=== PATIENT | male | born 1995 | race African-American/Black ===

== ENCOUNTER 2019-11-19 14:30 | Outpatient (RCR) | payer OTHER, SELFPAY ==
--- NOTE | 2019-09-23 14:27 | PTOPEVAL ---
PHYSICAL THERAPY EVALUATION AND PLAN OF CARE 09-23-2019 The PT evaluation was completed and his plan of care is scheduled for 2x/week for 5 weeks. Thank you for referring Coleman Hernandez to [facility]. Please review, sign, date and return this plan of care LEDA. I agree with and certify that the following plan of care is medically necessary. Referring Physician Date Attending Provider: Dr. 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 Cardiovascular History Hx Cardiac Disorders No Significant History Respiratory History Hx Respiratory Disorders No Significant History Gastrointestinal History Hx Gastrointestinal Disorders No Significant History Genitourinary History Hx Genitourinary Disorders No Significant History Musculoskeletal History Hx Musculoskeletal Disorders No Significant History Hematological History Hx Hematological Disorders No Significant History Endocrine History Hx Endocrine Disorders No Significant History HEENT History Hx HEENT Disorders No Significant History Integumentary History Hx Skin Disorders No Significant History Reproductive History Hx Reproductive Disorders No Significant History Evaluation Information Problem Diagnosis basal ganglia hemorrhage with craniotomy Onset June 17 2019 Subjective Information Home from hospital and in pt Query Text:As Reported By Patient/ rehab September 08; doing arm and Family leg exercises from hospital therapy. 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
--- NOTE | 2019-09-23 16:43 | STOPEVAL ---
Outpatient Speech Therapy Initial Evaluation: Thank you for referring Coleman Hernandez to [facility]. Skilled Speech Therapy is recommended 2x/week 5. Please review, sign, date and return this plan of care LEDA. I agree with and certify that the following plan of care is medically necessary. Referring Physician Date Attending Provider: Dr. Jacyln De La Cruz * Outpatient Evaluation Start: 09/23/19 14:39 Freq: Status: Active Protocol: Document 09/23/19 14:39 BECHERERT (Rec: 09/23/19 16:21 BECHERERT [email or web address]) Therapy Assessment Status Assessment Status Assessment Status Evaluation Outpatient Past Medical History Past Medical History Source of Past Medical History Patient,Family/Significant Other Neurological History Hx Other Neurological Disorders Yes: lg basal ganglia hemor & rupture w/ craniotomy Cardiovascular History Hx Cardiac Disorders No Significant History Respiratory History Hx Respiratory Disorders No Significant History Gastrointestinal History Hx Gastrointestinal Disorders No Significant History Genitourinary History Hx Genitourinary Disorders No Significant History Musculoskeletal History Hx Musculoskeletal Disorders No Significant History Hematological History Hx Hematological Disorders No Significant History Endocrine History Hx Endocrine Disorders No Significant History HEENT History Hx HEENT Disorders No Significant History Integumentary History Hx Skin Disorders No Significant History Reproductive History Hx Reproductive Disorders No Significant History Pain Assessment Timing of Pain Assessment Timing of Pain Assessment Assessment Self Report Self Report Pain Level 0 Pain Score Pain Score 0: Self Report Language Evaluation Auditory Comprehension Body Part Identification (% Accuracy (0- 80 100)) Object Identification (% Accuracy (0-100 80 )) Simple Yes/No Questions (% Accuracy (0- 80 100)) Moderate Yes/No Questions (% Accuracy (0 80 -100)) Auditory Comprehension One-Step 100 Directives (% Accuracy (0-100)) Auditory Comprehension of Two-Step 50 Directives (% Accuracy (0-100)) Response Latency Moderate Deficits Overall Auditory Comprehension Ability mod/severe Additional Auditory Comprehension needs repetitions as well as Comments extra time for processing; asks for repetition after nearly every request or statement which is questionably related to habit versus needing extra time to pr
--- NOTE | 2019-10-06 14:17 | PCPTNOTE ---
pt did not show for appointment; he arrived 40 minutes after his appointment time; PT treatment was not given this date;
[2019-10-08 12:34] VITALS: BP_SYST 90
--- NOTE | 2019-10-08 13:45 | OTOPEVAL ---
OCCUPATIONAL THERAPY EVALUATION REPORT 10/08/2019 Thank you for referring Coleman Hernandez to [facility]. Skilled OT indicated 2x/week for 4 weeks for deficits described below. Please review, sign, date and return this plan of care LEDA. I agree with and certify that the following plan of care is medically necessary. Referring Physician Date Referring Provider: Dr. Jaclyn De La Cruz *OT Outpatient Evaluation Therapy Assessment Status Assessment Status Assessment Status Evaluation Outpatient Past Medical History Past Medical History Source of Past Medical History Patient,Family/Significant Other Neurological History Hx Other Neurological Disorders Yes: lg basal ganglia hemor & rupture w/ craniotomy Cardiovascular History Hx Cardiac Disorders No Significant History Respiratory History Hx Respiratory Disorders No Significant History Gastrointestinal History Hx Gastrointestinal Disorders No Significant History Genitourinary History Hx Genitourinary Disorders No Significant History Musculoskeletal History Hx Musculoskeletal Disorders No Significant History Hematological History Hx Hematological Disorders No Significant History Endocrine History Hx Endocrine Disorders No Significant History HEENT History Hx HEENT Disorders No Significant History Integumentary History Hx Skin Disorders No Significant History Reproductive History Hx Reproductive Disorders No Significant History Evaluation Information Problem Diagnosis basal ganglia hemorrhage with craniotomy Onset June 17 2019 Subjective Information Home from hospital and Query Text:As Reported By Patient/ inpatient rehab September 08. Has Family UE and LE HEP from rehab. Prior Level of Function Activity Level (Last 3 Months) Occupation work at [employer], lifting Hand Dominance Right Activity of Daily Living Ability Independent Indoor/Home Mobility Independent Community Mobility Independent Stairs Ability Independent Functional Cognition (Planning, Shopping Independent , Taking Medications) Cooking Yes Cleaning Yes Laundry Yes Shopping Yes Driving Yes Home Setting Home Type House,Single Level Environmental Barriers Ramp,Stairs, 2-4 Living Situation With Parent Bathroom Environment Bathtub, Standard Bathing Equipment Hand Held Shower,Tub Transfer Bench Toileting Equipment Commode, Bedside Comments Additional Prior Level of Function Since re
--- NOTE | 2019-10-14 13:25 | PCOTNOTE ---
Patient was 45 minutes late to OT. Did not see patient this date.
--- NOTE | 2019-10-21 15:34 | PCPTNOTE ---
Patient did not show up for scheduled physical therapy appointment this date.
--- NOTE | 2019-10-21 15:59 | PCSTNOTE ---
Patient did not show up for scheduled appointment this date.
--- NOTE | 2019-11-06 14:47 | PCPTNOTE ---
pt called and canceled today's reeval due to car problems;
--- NOTE | 2019-11-06 15:00 | PCSTNOTE ---
Patient called & cancelled scheduled appointment this date due to [car problems ]
--- NOTE | 2019-11-07 12:28 | PCOTNOTE ---
Late note for yesterday, 11/06/19 - Patient's mom called and cancelled session due to car problems.
[2019-11-10 13:35] VITALS: BP_SYST 120
--- NOTE | 2019-11-10 15:51 | OTOPEVAL ---
OCCUPATIONAL THERAPY RE-EVALUATION: 11/10/2019 Thank you for referring Coleman Hernandez to [facility].? The patient would benefit from continued skilled occupational therapy for an additional 2x/week for 4 weeks. Please review, sign, date and return this plan of care LEDA. I agree with and certify that the following plan of care is medically necessary. Referring Physician Date Attending Provider: BEDSPREAD SEAMER PHYSICIAN *OT Outpatient Re-Evaluation Start: 10/08/19 12:30 Freq: Status: Active Protocol: Document 11/10/19 13:35 KJL (Rec: 11/10/19 15:50 KJL [id number]) Therapy Assessment Status Assessment Status Assessment Status Re-evaluation Evaluation Information Problem Diagnosis basal ganglia hemorrhage with craniotomy Onset June 17 2019 Additional Evaluation Detail Will has been attending Outpatient OT for the past 4 weeks. OT has been working on UE PROM, AAROM, strengthening, education on HEP. Subjective Information Pt reports it is easier to Query Text:As Reported By Patient/ lace fingers together for Family assistive active range of motion. Pt reports being difficult to move R UE with daily tasks. Pt's step dad present for Re-evalaution and reports continues to assist with stretching of R UE. Pain Assessment Timing of Pain Assessment Timing of Pain Assessment Assessment Self Report Self Report Pain Level 0 Pain Score Pain Score 0: Self Report Upper Extremity Range of Motion General Upper Extremity Range of Motion Reason Not Measured WNL/Left Scapular/ Shoulder Range of Motion Right Shoulder Flexion - Active 0 Shoulder Flexion - Passive 120 Shoulder Extension - Active 0 Shoulder Extension - Passive 60 Shoulder Abduction - Active 0 Shoulder Abduction - Passive 120 Shoulder Adduction - Active 0 Shoulder Adduction - Passive 0 Shoulder Lateral Rotation - Active 0 Shoulder Lateral Rotation - Passive 45 Scapular/Shoulder Range of Motion Pt PROM of shoulder flexion Comments and shoulder abduction increased from 90 degrees to 120 degrees. Pt PROM of shoulder extension increased from 50 degrees to 60 degrees. Elbow/Forearm Range of Motion Right Elbow Flexion - Active 0 Elbow Flexion - Passive 130 Elbow Extension - Active
--- NOTE | 2019-11-10 16:37 | PTOPEVAL ---
PHYSICAL THERAPY RE-EVALUATION 11-10-2019 Will has received 7 PT sessions, from September 22 to today; he did not show for 2 and called/canceled 1 appointment. Refer to the Clinical Summary below for his improvements since the initial evaluation. Thank you for referring Coleman Hernandez to [facility].? He is scheduled to continue Physical Therapy? 2 x/week for 4 weeks. Please review, sign, date and return this plan of care LEDA. I agree with and certify that the following plan of care is medically necessary. Referring Physician Date Attending Provider: Dr. Jaclyn De La Cruz *PT Outpatient Re-Evaluation Start: 09/23/19 13:16 Document 11/10/19 14:25 JH (Rec: 11/10/19 15:28 JH [id number]) Subjective Information Will and family report: have Query Text:As Reported By Patient/ not had any falls, using the Family wheel chair in community and when at home, walking from room/room with family help; he always has someone with him ; Pain Assessment Timing of Pain Assessment Timing of Pain Assessment Assessment Self Report Self Report Pain Level 0 Pain Score Pain Score 0: Self Report Lower Extremity Muscle Strength Testing General Lower Extremity Strength Gross Lower Extremity Strength R LE: sitting: knee extension to (-10 to -20) x 20 reps; hip flexion- not able to lift from seat; DF- no active DF; supine: SLR with hip flexion to 30' x 20 reps; heel slide and hip abduction- trace movement; hip adduction 12 reps; Transfer Assessment Chair Transfer Assessment Chair Transfer Assistive Devices Gait Belt Ambulation Assistive Devices Cane, Jalen Orthotic/Prosthetic Devices Right Lower Extremity Orthosis Chair Transfer Destination pivot w/c Sit to Stand Chair Transfer Ability Contact Guard Stand to Sit Chair Transfer Ability Contact Guard Cues Needed for Chair Transfer Verbal Chair Transfer Comments cues to turn and NOT twist on L knee to pivot Bed Mobility Assessment Bed Mobility Bed Type Mat Overall Bed Mobility Ability Independent Supine to Sit Ability Independent Sit to Supine Ability Independent Cues Needed for Bed Mobility None Bed Mobility Comments labored with supine/sit and increase time for transfer Balance Assessment Balance Screen Balance Comment static stand without UE hold 40 sec,decreased WB R LE; Time Up Go (TUG) Timed Up and Go Test (TUG) (Seconds) 124 Assistive Dev
--- NOTE | 2019-11-10 17:00 | STOPEVAL ---
SPEECH THERAPY PROGRESS REPORT AND POC UPDATE: Thank you for referring Coleman Hernandez to [facility].? The pt has completed 9 speech therapy sessions and has met many short term goals warranting further therapy. The patient is scheduled to be seen for therapy? 2x/week for 4 weeks. Please review, sign, date and return this plan of care LEDA. I agree with and certify that the following plan of care is medically necessary. Referring Physician Date Attending Provider: Dr Jaclyn De La Cruz * Outpatient Evaluation Start: 09/23/19 14:39 Freq: Status: Active Protocol: Document 11/10/19 12:44 BECHERERT (Rec: 11/10/19 13:32 BECHERERT [email or web address]) Therapy Assessment Status Assessment Status Assessment Status Re-evaluation Outpatient Past Medical History Past Medical History Source of Past Medical History Patient,Family/Significant Other Neurological History Hx Other Neurological Disorders Yes: lg basal ganglia hemor & rupture w/ craniotomy Cardiovascular History Hx Cardiac Disorders No Significant History Respiratory History Hx Respiratory Disorders No Significant History Gastrointestinal History Hx Gastrointestinal Disorders No Significant History Genitourinary History Hx Genitourinary Disorders No Significant History Musculoskeletal History Hx Musculoskeletal Disorders No Significant History Hematological History Hx Hematological Disorders No Significant History Endocrine History Hx Endocrine Disorders No Significant History HEENT History Hx HEENT Disorders No Significant History Integumentary History Hx Skin Disorders No Significant History Reproductive History Hx Reproductive Disorders No Significant History Pain Assessment Timing of Pain Assessment Timing of Pain Assessment Assessment Self Report Self Report Pain Level 0 Pain Score Pain Score 0: Self Report Language Evaluation Auditory Comprehension Body Part Identification (% Accuracy (0- 100 100)) Object Identification (% Accuracy (0-100 100 )) Simple Yes/No Questions (% Accuracy (0- 100 100)) Moderate Yes/No Questions (% Accuracy (0 80 -100)) Auditory Comprehension One-Step 100 Directives (% Accuracy (0-100)) Auditory Comprehension of Two-Step 75 Directives (% Accuracy (0-100)) Auditory Comprehension of Simple 100 Paragraphs (% Accuracy (0-100)) Auditory Comprehension of Moderate 50 Paragraphs (% Accuracy (0-100)) Additional Auditory Comprehension requests many repetitions as Comments he is processing Reading Comprehension Name Recognition Yes Numeral Comprehension (% Accuracy (0-100 100 )) Letter Comprehension (
--- NOTE | 2019-11-12 14:17 | PCOTNOTE ---
Patient did not show or call to cancel appointments today. Called patient's mom who reported that they did not get their ride scheduled in time for today. Requested that she call to let us know if they weren't going to make an appointment in the future.
--- NOTE | 2019-11-12 14:58 | PCSTNOTE ---
Patient did not show up for scheduled appointment this date due to transportation issues
--- NOTE | 2019-11-12 15:45 | PCPTNOTE ---
Patient was called after missing his OT appointment & cancelled his PT scheduled appointment this date due to no transportation.
--- NOTE | 2019-11-21 13:14 | PCSTNOTE ---
Patient called & cancelled scheduled appointment this date due to issues with transportation.
--- NOTE | 2019-11-21 13:56 | PCPTNOTE ---
PHYSICAL THERAPY DISCHARGE 11-21-2019 Attending Provider: Dr. Jaclyn De La Cruz Patient:Coleman Hernandez Date of :1995 Will's mother called today and canceled his PT treatments, stated he is having further surgery, therefore he will be discharged at this time. He has received 9 PT sessions, from September 22 to November 18. The goals were not assessed. Refer to the last reevaluation dated October 27 for his status at the last assessment. Thank you for referring Mr. Hernandez to [facility]. Please review, sign, date and return this discharge summary LEDA. I have been updated about the patient's current status and I agree with discharge from the above service at this time. Referring Physician Date
--- NOTE | 2019-11-24 10:52 | OTOPEVAL ---
OCCUPATIONAL THERAPY DISCHARGE 11/24/2019 Will's mother called today and canceled his OT treatments, stated he is having further surgery, therefore he will be discharged at this time. He has received 7 OT sessions, from October 07 to November 18. The goals were not assessed. Refer to the last reevaluation dated October 27 for his status at the last assessment. Thank you for referring Mr. Hernandez to [facility]. Please review, sign, date and return this discharge summary LEDA. I have been updated about the patient's current status and I agree with discharge from the above service at this time. I agree with and certify that the following plan of care is medically necessary. Referring Physician Date Attending Provider: Dr. Jaclyn De La Cruz
--- NOTE | 2019-11-24 11:02 | PCSTNOTE ---
SPEECH THERAPY DISCHARGE Attending Provider: SUPERVISOR STAGE CARPENTRY PHYSICIAN Patient:Coleman Hernandez Date of :1995 Thank you for referring this patient to [facility]. Coleman has completed 15 speech therapy sessions and has exhibited steady improvement and progression towards goal achievement; however, due to upcoming medical procedures and surgery, he has cancelled his remaining scheduled visits. His mother stated he would like to return after he has recovered from these upcoming medical procedures. He will, therefore, be discharged from speech therapy at this time. The goals have been partially met. Please review, sign, date and return this discharge summary LEDA. I have been updated about the patient's current status and I agree with discharge from the above service at this time. Referring Physician Date
--- NOTE | 2020-03-25 14:41 | PCOTNOTE ---
Inaccurate charges on this patient for OT treatments dated 10/21/19 and 10/28/19. Paraffin charges were billed on these two dates by mistake. The charges should have been for e-stim. CRIS Rizo/Samantha, CHT
== END 2019-11-24 08:11 | disposition home or self-care (01) ==
LOC: ANHPT 14:30
DX: I61.8 Other nontraumatic intracerebral hemorrhage (principal); F80.2 Mixed receptive-expressive language disorder; R48.2 Apraxia; Q28.2 Arteriovenous malformation of cerebral vessels
CPT/HCPCS: 92507; 92523; 97014; 97018; 97110; 97112; 97116; 97140; 97161; 97165; 97168; G0283